=== PATIENT | female | born 1975 | race Caucasian/White ===

== ENCOUNTER 2016-05-07 09:20 | Day surgery (SDC) | payer MEDICAID, OTHER ==
[~2016-05-07 09:20] MED LIST: Lactated Ringers 1,000 ML IV SCH; Lidocaine 1%/Sod Bicarbonate in NS 8.4% 1 ML Syringe IV PRN; Sodium Chloride 0.9% 10 ML Syringe FLUSH PRN
--- NOTE | 2016-05-07 10:06 | PCM.PREANE ---
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 (and tingling feet ) Respiratory: Reports: cough Cardiovascular: Reports: blood pressure problem GI: Reports: no symptoms Other: Reports: none - PHYSICAL ASSESSMENT O2 Sat by Pulse Oximetry: 98 RR: 16 Vital Signs: Last Vital Signs Temp 36.8 C 05/07/16 09:25 Pulse 101 H 05/07/16 09:25 Resp 16 05/07/16 09:25 BP 152/93 H 05/07/16 09:25 Pulse Ox 98 05/07/16 09:25 Height: 1.63 m Weight: 87.543 kg NPO Status Date: 05/07/16 NPO Status Time: 23:00 ASA Class: 2 Mental Status: alert & oriented x3 Airway Class: Mallampati = 3 Dentition: Reports: missing tooth/teeth (missing multiple teeth upper, many chipped/ broken left upper side, right side missing incisor tooth ) Thyro-Mental Finger Breadths: 3 Mouth Opening Finger Breadths: 3 ROM/Head Extension: limited/partial Respiratory Status: lungs clear to auscultation bilaterally, cough, wheezing ( preop albuterol inhaler administered ) Cardiovascular Status: regular rate & rhythm, normal S1, S2, no murmur, blood pressure WNL - LAB Values: Laboratory Last Values WBC 11.63 K/mm3 (3.98-10.04) H 05/07/16 09:40 RBC 3.87 M/mm3 (3.98-5.22) L 05/07/16 09:40 Hgb 13.5 gm/L (11.2-15.7) 05/07/16 09:40 Hct 39.8 % (34.1-44.9) 05/07/16 09:40 MCV 102.8 fl (79.4-94.8) H 05/07/16 09:40 MCH 34.9 pg (25.6-32.2) H 05/07/16 09:40 MCHC 33.9 g/dl (32.2-35.5) 05/07/16 09:40 RDW Std Deviation 46.3 fL (36.4-46.3) 05/07/16 09:40 Plt Count 235 K/mm3 (182-369) 05/07/16 09:40 MPV 11.8 fl (9.4-12.3) 05/07/16 09:40 Neut % (Auto) 52.5 % (34.0-71.1) 05/07/16 09:40 Lymph % (Auto) 35.6 % (19.3-51.7) 05/07/16 09:40 [place] % (Auto) 7.6 % (4.7-12.5) 05/07/16 09:40 Eos % (Auto) 3.1 (0.7-5.8) 05/07/16 09:40 Baso % (Auto) 0.4 % (0.1-1.2) 05/07/16 09:40 Neut # 6.11 K/mm3 (1.56-6.13) 05/07/16 09:40 Lymph # 4.14 K/mm3 (1.18-3.74) H 05/07/16 09:40 [place] # 0.88 K/mm3 (0.24-0.36) H 05/07/16 09:40 Eos # 0.36 K/mm3 (0.04-0.36) 05/07/16 09:40 Baso # 0.05 K/mm3 (0.01-0.08) 05/07/16 09:40 - ALLERGIES Allergies/Adverse Reactions: Allergies Allergy/AdvReac Type Severity Reaction Status Date / Time lorazepam Allergy Hives Verified 05/06/16 16:19 Sulfa (Sulfonamide Allergy Cannot Verified 05/06/16 16:19 Antibiotics) Remember - BLOOD Blood Available: Yes Product(s) Available: PRBC - ANESTHESIA PLAN Preop Beta Opal: No Anesthesia Type Planned: general anesthesia - ACKNOWLEDGEMENTS Pt an appropriate candidate for the planned anesthesia: Yes Alternatives and risks of anesthesia discussed w pt/guardian: Yes Pt/Guardian understands and agree with anesthesia plan: Yes PreAnesthesia Questionnaire HEENT History: Reports: Impaired vision Cardiovascular History: Reports: Hypertension Respiratory History: Reports: Other (see below) (cough, wheezy, SOB if walking 2 flights of stairs) Gastrointestinal History: Reports: GERD Genitourinary History: Reports: None INSTRUCTION DEAN History: Reports: , Spontaneous , Other (see below) Other OB/BYN History: , CINII, pelvic pain, HSIL Musculoskeletal History: Reports: Arthritis, RA Neurological History: Reports: Migraines Psychiatric History: Reports: Anxiety, Depression Endocrine/Metabolic History: Reports: None Hematologic History: Reports: None Immunologic History: Reports: None Oncologic (Cancer) History: Reports: None Dermatologic History: Reports: None - Past Surgical History Head Surgeries/Procedures: Reports: None GI Surgical History: Reports: Appendectomy, Cholecystectomy Female Surgical History: Reports: section, LEEP, Tubal ligation - SUBSTANCE USE Smoking Status *Q: Current Every Day Smoker Recreational Drug Use History: No - HOME MEDS Home Medications: Home Meds ALPRAZolam [Alprazolam] 0.25 mg PO ASDIRECTED PRN 05/06/16 [History] Adalimumab [Humira] 1 injection SQ ASDIRECTED 05/06/16 [History] Albuterol [Ventolin HFA] 1 - 2 puff INH Q4H PRN 05/06/16 [History] Citalopram [Citalopram HBr] 40 mg PO DAILY 05/06/16 [History] Gabapentin [Neurontin] 300 mg PO TID 05/06/16 [History] Hydrochlorothiazide/Lisinopril [Lisinopril-HCTZ 20-25 MG] 1 tab PO DAILY [History] Methotrexate Sodium/PF [Methotrexate 50 mg/2 ml Vial] 1 injection SQ WEEKLY 08/17 [History] Omeprazole [Omeprazole] 20 mg PO DAILY 05/06/16 [History] Temazepam [Temazepam] 15 mg PO BEDTIME 05/06/16 [History] Topiramate 25 mg PO BID 05/06/16 [History] buPROPion HCl [Wellbutrin Xl] 300 mg PO DAILY 05/06/16 [History] tiZANidine [Zanaflex] 4 mg PO BEDTIME 05/06/16 [History] traMADol [Ultram] 50 mg PO Q6H PRN 05/06/16 [History] - CURRENT (IN HOUSE) MEDS Current Meds: Current Medications Lactated Ringer's (Ringers, Lactated) 1,000 mls @ 125 mls/hr IV ASDIRECTED KEISHA Stop: 05/07/16 23:00 Lidocaine/Sodium Bicarbonate (Buffered Lidocaine 1% In Ns 8.4%) 0.25 ml IV ONETIME PRN PRN Reason: Prior to IV Start Stop: 05/07/16 18:00 Sodium Chloride (Saline Flush) 10 ml FLUSH ASDIRECTED PRN PRN Reason: Keep Vein Open Stop: 05/07/16 18:00
[2016-05-07] MEDS ORDERED: diphenhydrAMINE 50 MG/ML SDV IVPUSH PRN ×2 (10:16→12:24)
[2016-05-07] MEDS ORDERED: Ondansetron 4 MG/2 ML SDV IVPUSH PRN ×2 (10:16→12:24)
[2016-05-07] MEDS ORDERED: Sodium Chloride 0.9% 50 ML SDV ONE (10:17)
[2016-05-07] MEDS ORDERED: Lidocaine 1% with EPINEPHrine 1:100,000 20 ML MDV ONE (10:17)
[2016-05-07] MEDS ORDERED: Albuterol 6.7 GM Inhaler INH ONE (10:39)
[2016-05-07] MEDS ORDERED: Succinylcholine/Normal Saline 100 MG/5 ML Syringe ONE ×2 (10:49→10:54)
[2016-05-07] MEDS ORDERED: Midazolam 1 MG/ML 2 ML SDV ONE (10:49)
[2016-05-07] MEDS ORDERED: Rocuronium 50 MG/5 ML Vial ONE ×2 (10:49→10:54)
[2016-05-07] MEDS ORDERED: Propofol 200 MG/20 ML SDV ONE ×2 (10:49→10:52)
[2016-05-07] MEDS ORDERED: fentaNYL 250 MCG/5 ML SDV ONE (10:50)
[2016-05-07] MEDS ORDERED: ceFAZolin 1 GM Vial ONE (10:52)
[2016-05-07] MEDS ORDERED: Lidocaine 1% 2 ML SDV ONE (10:57)
[2016-05-07] MEDS ORDERED: Meperidine PF 50 MG/ML Syringe IVPUSH PRN ×2 (11:20→12:24)
[2016-05-07] MEDS ORDERED: HYDROmorphone 0.5 MG/0.5 ML Syringe IVPUSH PRN ×2 (11:20→12:24)
[2016-05-07] MEDS ORDERED: HYDROmorphone 1 MG/ML Syringe ONE (11:35)
[2016-05-07] MEDS ORDERED: Ondansetron 4 MG/2 ML SDV ONE (11:38)
[2016-05-07] MEDS ORDERED: Dexamethasone 4 MG/ML SDV ONE (11:39)
[2016-05-07] MEDS ORDERED: Ketorolac 30 MG/ML SDV ONE (11:39)
[2016-05-07] MEDS ORDERED: Neostigmine Methylsulfate 1 MG/ML 5 ML Syringe ONE (11:57)
[2016-05-07] MEDS ORDERED: Ketamine 500 mg/10 ML MDV ONE (11:59)
--- NOTE | 2016-05-07 12:11 | PCM.OPNOTE ---
- General Post-Op/Procedure Note Date of Surgery/Procedure: 05/07/16 Operative Procedure(s): Total vaginal hysterectomy, bilateral salpingo- oophorectomy, and (neither ovary removed.) Pre Op Diagnosis: SHANON-2, female, pelvic pain, HSIL Pap Post-Op Diagnosis: Same Anesthesia Technique: General ET tube Primary Surgeon: Aftab Andrew Secondary Surgeon: Harjeet Valente Anesthesia Provider: Leonie Kan Fluid Replacement, Intraop: 1,000 Output, Urine Amount: 0 EBL in mLs: 50 Drain/Tube Comments:: None Complications: None Condition: Good Free Text/Narrative:: Patient was transported to operating room #1 and placed under general anesthesia with endotracheal intubation in the low dorsal lithotomy position. Sterile fashion. SCDs in place and functioning. Prior surgery. Ancef 2 g prior surgery. Timeout performed, and firming. Name, date of , and procedure as total vaginal hysterectomy, bilateral salpingectomy, possible removal of one or both ovaries, possible total abdominal hysterectomy, with bilateral salpingectomy, possible removal of one or both ovaries.). Total vaginal hysterectomy, bilateral salpingectomy performed without removal of either ovary . The examination under anesthesia revealed anterior uterus. No adnexal masses. The cervix was injected with 2 mL of 0.5% lidocaine with epinephrine and circumferentially using open 4 x 4, incising, the anesthetic into the tissues. A long knife was then used to circumscribe. The cervix pushing the anterior cul-de-sac and posterior cul-de-sac cephalad. Posterior colpotomy was performed, and proceeding in a pedicle fashion. Crossclamping, with LigaSure, activating, and, incising, the uterosacral ligaments and cardinal ligaments were crossclamped, LigaSure activated, and incised, the anterior colpotomy was performed without difficulty and proceeding in a pedicle fashion cephalad. Crossclamping, activating LigaSure, and incising, until the triple pedicles were approximated. The uterine fundus was brought through the posterior portion of the incision and crossclamping the triple pedicles bilaterally. The uterus. Cervix removed. The triple pedicles were suture ligated with 0 Monocryl and the left fallopian tube was grasped, and crossclamping the mesosalpinx, with the LigaSure, and removing the left fallopian tube sent. She carried out on the right side. Both ovaries appeared normal. Neither ovary was removed. Sponge, needle, pack, and splint sharp count correct, x2 in the pursestring suture was placed with 0 Monocryl to incorporate. The pedicles extraperitoneally having had anterior, posterior cuff , approximate of 0 Monocryl running, locking suture. Hemostasis was normal. No blood transfusions, required. Patient transported post anesthesia care unit in satisfactory condition. Talked with her and all questions answered is voice satisfaction
[2016-05-07] MEDS ORDERED: fentaNYL 100 MCG/2 ML SDV IVPUSH PRN (12:24)
[2016-05-07] MEDS: fentaNYL 100 MCG/2 ML SDV IVPUSH PRN ×3 (12:25→13:05)
--- NOTE | 2016-05-07 12:37 | PCM.POSTAN ---
POST ANESTHESIA ASSESSMENT - MENTAL STATUS Mental Status: alert - VITAL SIGNS Pulse Rate: 117 SaO2: 96 Resp Rate: 12 Blood Pressure: 152/76 Temperature: 98.5 C - RESPIRATORY Respiratory Status: respiratory rate WNL, airway patent, O2 saturation stable - CARDIOVASCULAR CV Status: pulse rate WNL, blood pressure stable - GASTROINTESTINAL GI Status: no symptoms - PAIN Pain Score: 0 (pt resting comfortably ) - POST OP HYDRATION Hydration Status: adequate & stable
--- NOTE | 2016-05-07 13:44 | PCM48HPAN ---
Post Anesthesia Note - EVALUATION WITHIN 48HRS OF ANESTHETIC Vital Signs in Normal Range: Yes Patient Participated in Evaluation: Yes Respiratory Function Stable: Yes Airway Patent: Yes Cardiovascular Function Stable: Yes Hydration Status Stable: Yes Pain Control Satisfactory: Yes (being treated with oral meds by room RN ) Nausea and Vomiting Control Satisfactory: Yes Mental Status Recovered: Yes
[2016-05-07] MEDS ORDERED: Acetaminophen/oxyCODONE 325-5 MG Tab PO ONE (14:50)
[2016-05-07 16:02] VITALS: BP 142/86
== END 2016-05-07 15:50 | disposition home or self-care (01) ==
LOC: JD.SDS 09:20
PROVIDERS: ATTEND Obstetrics & Gynecology
PROC: 0UT97ZZ Resection of Uterus, Via Natural or Artificial Opening (ICD-10-PCS; principal; 2016-05-07)
PROC: 0UTC7ZZ Resection of Cervix, Via Natural or Artificial Opening (ICD-10-PCS; 2016-05-07)
PROC: 0UT77ZZ Resection of Bilateral Fallopian Tubes, Via Natural or Artificial Opening (ICD-10-PCS; 2016-05-07)
DX: N72 Inflammatory disease of cervix uteri (principal); N80.0 Endometriosis of uterus; F41.9 Anxiety disorder, unspecified; M19.90 Unspecified osteoarthritis, unspecified site; F32.9 Major depressive disorder, single episode, unspecified; I10 Essential (primary) hypertension; M06.9 Rheumatoid arthritis, unspecified; Z88.2 Allergy status to sulfonamides; Z88.8 Allergy status to other drugs, medicaments and biological substances; Z79.899 Other long term (current) drug therapy; F17.200 Nicotine dependence, unspecified, uncomplicated
CPT/HCPCS: 36415; 58262; 84703; 85025; 86850; 86900; 86901; 88307; A9270; J0330; J0690; J1100; J1170; J1885; J2250; J2405; J2710; J3010; J7120; 00944; J2704

== ENCOUNTER 2019-08-11 13:09 | Emergency (ER) | payer MEDICAID, OTHER ==
[2019-08-11 13:50] VITALS: BP 179/90; PULSE 87
[2019-08-11] MEDS ORDERED: Sodium Chloride 0.9% 10 ML Syringe FLUSH PRN (13:59)
--- NOTE | 2019-08-11 14:03 | EDM.PDOC ---
ED HPI GENERAL MEDICAL PROBLEM - General Chief Complaint: Chest Pain Stated Complaint: CHEST PAIN/SOB X 1 WEEK Time Seen by Provider: 08/11/19 13:48 Source of Information: Reports: Patient History Limitations: Reports: No Limitations - History of Present Illness INITIAL COMMENTS - FREE TEXT/NARRATIVE: 44-year-old female attends the ED complaining of gradually worsening dyspnea over the last week. She has an associated upper respiratory tract infection or allergies with postnasal drip. She is aware of decreased hearing in her left ear and intermittent problems with vertigo as well. She wakes up every morning quite nauseated and cannot eat for about 2 or 3 hours. She does have a nonproductive cough. She states pain is primarily felt in her right anterior chest and seems to radiate into the right shoulder and down her arm. This is been present for the last 2-1/2 days. Pain seems to radiate through to her right back infrascapular area as well. She has not been on any vacations or long trips to be worrisome for DVT. No past history of DVT. She is a smoker three quarters of a pack per day. Nuys any hemoptysis. No true pleuritic chest pain. No palpitations Onset: Gradual Onset Date: 08/04/19 (Worsening dyspnea over the last week.) Duration: Day(s):, Constant (Right anterior chest pain is constant and worsens with deep breathing or coughing), Getting Worse Location: Reports: Chest (As of breath and right sided chest pain rating towards the right shoulder.), Radiates to (And also radiates from the right chest to her infrascapular area on the right side.) Quality: Reports: Other (Aware of postnasal drip.) Severity: Moderate Improves with: Reports: None Worsens with: Reports: Other (Certain movements make the right chest pain hurt as well as she can make it hurt by touching it.) Context: Denies: Activity, Exercise, Lifting, Sick Contact, Trauma, Other Associated Symptoms: Reports: Chest Pain (Nonproductive cough right chest wall pain primarily), Cough, Headaches, Loss of Appetite, Malaise, Nausea/Vomiting ( As he without vomiting), Shortness of Breath, Weakness. 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 Was for headache and chest pain relief. Patient does have chronic rheumatoid arthritis) Chest Pain Score (Numeric/FACES): 5 - Related Data Allergies Allergy/AdvReac Type Severity Reaction Status Date / Time lorazepam Allergy Hives Verified 08/11/19 13:50 Sulfa (Sulfonamide Allergy Cannot Verified 08/11/19 13:50 Antibiotics) Remember Home Meds: Home Meds ALPRAZolam [Alprazolam] 0.25 mg PO ASDIRECTED PRN 05/06/16 [History] Adalimumab [Humira] 1 injection SQ ASDIRECTED 05/06/16 [History] Albuterol [Ventolin HFA] 1 - 2 puff INH Q4H PRN 05/06/16 [History] Gabapentin [Neurontin] 300 mg PO TID 05/06/16 [History] Hydrochlorothiazide/Lisinopril [Lisinopril-HCTZ 20-25 MG] 1 tab PO DAILY [History] Methotrexate Sodium/PF [Methotrexate 50 mg/2 ml Vial] 1 injection SQ WEEKLY 08/17 [History] Omeprazole 20 mg PO DAILY 05/06/16 [History] Temazepam 15 mg PO BEDTIME 05/06/16 [History] Topiramate 25 mg PO BID 05/06/16 [History] buPROPion HCL [Wellbutrin Xl] 300 mg PO DAILY 05/06/16 [History] tiZANidine [Zanaflex] 4 mg PO BEDTIME 05/06/16 [History] traMADol [Ultram] 50 mg PO Q6H PRN 05/06/16 [History] Ibuprofen [Motrin] 200 - 600 mg PO Q6H #50 tablet 05/07/16 [Rx] Ondansetron [Zofran ODT] 8 mg PO Q5H #20 tab.dis 05/07/16 [Rx] oxyCODONE HCl/Acetaminophen [Percocet 5-325 mg Tablet] 1 each PO Q6H #30 tablet 05/07/16 [Rx] Cefdinir [Omnicef] 300 mg PO BID #16 cap 08/11/19 [Rx] Magnesium Chloride [Slow-Mag] 71.5 mg PO BID #60 tablet. 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 , Other (See Below) Other CRAWLER CRANE OPERATOR History: , CINII, pelvic pain, HSIL Musculoskeletal History: Reports: Arthritis, RA (Is on Humira and methotrexate.) Neurological History: Reports: Migraines Psychiatric History: Reports: Anxiety, Depression Endocrine/Metabolic History: Reports: None Hematologic History: Reports: None Immunologic History: Reports: None Oncologic (Cancer) History: Reports: None Dermatologic History: Reports: None - Past Surgical History Head Surgeries/Procedures: Reports: None GI Surgical History: Reports: Appendectomy, Cholecystectomy Female Surgical History: Reports: Section, LEEP, Tubal Ligation Social & Family History - Tobacco Use Smoking Status *Q: Current Every Day Smoker Years of Tobacco use: 23 Packs/Tins Daily: 1 - Living Situation & Occupation Living situation: Reports: Occupation: Unemployed ED ROS GENERAL - Review of Systems Review Of Systems: See Below Constitutional: Reports: Malaise, Fatigue, Decreased Appetite. Denies: Fever, Chills HEENT: Reports: Hearing Loss, Rhinitis (Postnasal drip nasal congestion), Sinus Problem. Denies: Ear Discharge Respiratory: Reports: Shortness of Breath, Wheezing, Cough. Denies: Pleuritic Chest Pain (Occasional wheezing), Sputum, Hemoptysis (Productive) Cardiovascular: Reports: Chest Pain (Take a appreciable on the right side seems to radiating towards the right arm and into her infrascapular on the right side. ), Dyspnea on Exertion. Denies: Blood Pressure Problem, Claudication, Edema, Lightheadedness, Orthopnea Endocrine: Reports: Fatigue GI/Abdominal: Reports: Nausea (Remittent nausea particularly in the mornings when she gets up she cannot eat right away) : Reports: No Symptoms Musculoskeletal: Reports: Neck Pain, Back Pain Skin: Reports: No Symptoms Neurological: Reports: Headache Psychiatric: Reports: No Symptoms Hematologic/Lymphatic: Reports: No Symptoms Immunologic: Reports: No Symptoms ED EXAM, GENERAL - Physical Exam Exam: See Below Exam Limited By: No Limitations General Appearance: Alert, WD/WN, No Apparent Distress, Other (Temperature is 36.4. Heart rate is 87 and sinus respiratory to 16 with O2 sats of 99% room air. BP is elevated at 179/90) Eye Exam: Bilateral Eye: Normal Inspection (No blepharal pallor or scleral icterus.), PERRL Ears: Other (And has a bulging left eardrum due to serous otitis media.) Nose: Clear Rhinorrhea (The tissue is erythematous and inflamed.), Other ( Marked nasal congestion with swelling of the superior middle turbinates bilaterally. On the left side it nearly occludes her nasal passage completely.) Throat/Mouth: Normal Inspection, Normal Lips, Normal Oropharynx, Other Head: Atraumatic (Is mildly dry), Normocephalic Neck: Normal Inspection, Supple, Non-Tender, Full Range of Motion, Limited Range of Motion (He does have pain at the extremes of range of motion but can reach full range of motion.). No: Carotid Bruit, Lymphadenopathy (L), Lymphadenopathy (R) Respiratory/Chest: No Respiratory Distress, Lungs Clear, Normal Breath Sounds, No Accessory Muscle Use, Other (Tenderness on palpation of the ribs. Particular the fourth rib on the left side midclavicular line. Ribs 2345 and 6 were very tender in the midclavicular line particular the fourth rib on the right side. Definite chest wall inflammation). No: Rales, Rhonchi, Wheezing Cardiovascular: Normal Peripheral Pulses, Regular Rate, Rhythm, No Edema, No Gallop, No Murmur, No Rub Peripheral Pulses: 2+: Posterior Tibial (L), Posterior Tibial (R), Dorsalis Pedis (L), Dorsalis Pedis (R), 3+: Carotid (L), Carotid (R) GI/Abdominal: Normal Bowel Sounds, Soft, Non-Tender, No Organomegaly, No Abnormal Bruit, No Mass, Pelvis Stable Back Exam: Normal Inspection, Decreased Range of Motion. No: CVA Tenderness (L) , CVA Tenderness (R) Extremities: Other (Patient has evidence of Arst rheumatoid arthritic changes particularly involving the MCP joints of both hands and feet feet. She also has evidence of inflammation in her wrists and knees.) Neurological: Alert, Oriented, CN II-XII Intact, Normal Cognition Psychiatric: Normal Affect, Normal Mood Skin Exam: Warm, Dry, Intact, Normal Color, No Rash Course - Vital Signs Last Recorded V/S: Last Vital Signs Temp 36.4 C 08/11/19 13:47 Pulse 87 08/11/19 13:47 Resp 16 08/11/19 13:47 BP 179/90 H 08/11/19 13:47 Pulse Ox 99 08/11/19 13:47 - Orders/Labs/Meds Orders: Active Orders 24 hr Category Date Time Status EKG Documentation Completion [RC] STAT Care 08/11/19 13:59 Active Peripheral IV Care [RC] . DIRECTED Care 08/11/19 13:59 Active Sodium Chloride 0.9% [Saline Flush] Med 08/11/19 13:59 Active 10 ml FLUSH ASDIRECTED PRN Peripheral IV Insertion Adult [OM.PC] Stat Oth 08/11/19 13:59 Ordered Medication Orders Sodium Chloride (Saline Flush) 10 ml FLUSH ASDIRECTED PRN PRN Reason: Keep Vein Open Labs: Laboratory Tests 08/11/19 08/11/19 08/11/19 Range/Units 14:24 14:24 14:24 WBC 13.07 H (3.98-10.04) K/mm3 RBC 4.62 (3.98-5.22) M/mm3 Hgb 15.6 D (11.2-15.7) gm/dl Hct 45.1 H (34.1-44.9) % MCV 97.6 H D (79.4-94.8) fl MCH 33.8 H (25.6-32.2) pg MCHC 34.6 (32.2-35.5) g/dl RDW Std Deviation 42.8 (36.4-46.3) fL Plt Count 245 (182-369) K/mm3 MPV 11.8 (9.4-12.3) fl Neut % (Auto) 60.5 (34.0-71.1) % Lymph % (Auto) 29.4 (19.3-51.7) % Garfield % (Auto) 6.7 (4.7-12.5) % Eos % (Auto) 2.7 (0.7-5.8) Baso % (Auto) 0.2 (0.1-1.2) % Neut # (Auto) 7.91 H (1.56-6.13) K/mm3 Lymph # (Auto) 3.84 H (1.18-3.74) K/mm3 Garfield # (Auto) 0.88 H (0.24-0.36) K/mm3 Eos # (Auto) 0.35 (0.04-0.36) K/mm3 Baso # (Auto) 0.02 (0.01-0.08) K/mm3 D-Dimer, Quantitative 0.27 (0.19-0.50) mg/L Sodium 139 (136-145) mEq/L Potassium 3.7 (3.5-5.1) mEq/L Chloride 102 (98-107) mEq/L Carbon Dioxide 25 (21-32) mEq/L Anion Gap 15.7 H (5-15) BUN 8 (7-18) mg/dL Creatinine 0.6 (0.55-1.02) mg/dL Est Cr Clr Drug Dosing 104.40 mL/min Estimated GFR (MDRD) > 60 (>60) mL/min BUN/Creatinine Ratio 13.3 L (14-18) Glucose 113 H (74-106) mg/dL Calcium 9.5 (8.5-10.1) mg/dL Magnesium 1.3 L (1.8-2.4) mg/dl Total Bilirubin 0.3 (0.2-1.0) mg/dL AST 41 H (15-37) U/L ALT 55 (14-59) U/L Alkaline Phosphatase 41 L (46-116) U/L CK-MB (CK-2) 0.7 (0-3.6) ng/ml Troponin I < 0.017 (0.00-0.056) ng/mL C-Reactive Protein 1.0 (<1.0) mg/dL NT-Pro-B Natriuret Pep (0-125) pg/mL Total Protein 8.1 (6.4-8.2) g/dl Albumin 4.0 (3.4-5.0) g/dl Globulin 4.1 gm/dL Albumin/Globulin Ratio 1.0 (1-2) 08/11/19 Range/Units 14:24 WBC (3.98-10.04) K/mm3 RBC (3.98-5.22) M/mm3 Hgb (11.2-15.7) gm/dl Hct (34.1-44.9) % MCV (79.4-94.8) fl MCH (25.6-32.2) pg MCHC (32.2-35.5) g/dl RDW Std Deviation (36.4-46.3) fL Plt Count (182-369) K/mm3 MPV (9.4-12.3) fl Neut % (Auto) (34.0-71.1) % Lymph % (Auto) (19.3-51.7) % Garfield % (Auto) (4.7-12.5) % Eos % (Auto) (0.7-5.8) Baso % (Auto) (0.1-1.2) % Neut # (Auto) (1.56-6.13) K/mm3 Lymph # (Auto) (1.18-3.74) K/mm3 Garfield # (Auto) (0.24-0.36) K/mm3 Eos # (Auto) (0.04-0.36) K/mm3 Baso # (Auto) (0.01-0.08) K/mm3 D-Dimer, Quantitative (0.19-0.50) mg/L Sodium (136-145) mEq/L Potassium (3.5-5.1) mEq/L Chloride (98-107) mEq/L Carbon Dioxide (21-32) mEq/L Anion Gap (5-15) BUN (7-18) mg/dL Creatinine (0.55-1.02) mg/dL Est Cr Clr Drug Dosing mL/min Estimated GFR (MDRD) (>60) mL/min BUN/Creatinine Ratio (14-18) Glucose (74-106) mg/dL Calcium (8.5-10.1) mg/dL Magnesium (1.8-2.4) mg/dl Total Bilirubin (0.2-1.0) mg/dL AST (15-37) U/L ALT (14-59) U/L Alkaline Phosphatase (46-116) U/L CK-MB (CK-2) (0-3.6) ng/ml Troponin I (0.00-0.056) ng/mL C-Reactive Protein (<1.0) mg/dL NT-Pro-B Natriuret Pep 30 (0-125) pg/mL Total Protein (6.4-8.2) g/dl Albumin (3.4-5.0) g/dl Globulin gm/dL Albumin/Globulin Ratio (1-2) Meds: Medications Generic Name Dose Route Start Last Admin Trade Name Lin PRN Reason Stop Dose Admin Sodium Chloride 10 ml 08/11/19 13:59 Saline Flush FLUSH ASDIRECTED PRN Keep Vein Open - Radiology Interpretation Free Text/Narrative:: 44-year-old female attends the ED with a history of gradually worsening dyspnea over the last week with the development of right-sided chest pain over the last 2 to 3 days. It is much worse today and radiating to her right arm particularly medially to her elbow and through to her back under her shoulder blade. She has an upper respiratory tract infection with sinusitis and postnasal drip. Exam also revealed a left serous otitis media marked inflammation of the nightmares particular superior medial turbinates bilaterally. Lungs were clear to auscultation percussion heart was sinus she has marked chest wall pain fourth rib midclavicular line on the left side ribs 2 -6 were very tender to touch on the right side midclavicular line. I suspect pain and is radiating along the costochondral nerve into the right upper extremity. Range of motion of her shoulder on the right side is normal. She to her knowledge is had no inflammation of her lungs from rheumatoid arthritis. Sats are good and so unlikely that she has a knee DVT. Examining for lower extremity show no evidence of any worrisome changes for DVT in her legs. Teen labs will be obtained as well as a chest x-ray and ECG. At this time she did not request any analgesia she got hydrocodone tablet about 2 hours before coming to the ED.. - Re-Assessments/Exams Free Text/Narrative Re-Assessment/Exam: 08/11/19 14:56 chest x-ray done portably is within normal limits. Cardiac silhouette is normal. Lungs are clear with no signs of infection. 08/11/19 14:57 White count is slightly elevated at 13.07. The auto differential shows 60.5% neutrophils. Hemoglobin is 15.6 with a hematocrit of 45.1. Platelet count is 245,000. Chemistry is pending 08/11/19 15:34 d-dimer is 0.27. Normal. Chemistry remains pending 08/11/19 15:42 Chemistry shows a sodium of 139 potassium 3.7. Chloride is 102 with a bicarb 25. Anion gap is 15.7. BUN is 8 with a creatinine of 0.6. Glucose 113. Calcium is 9.5. Magnesium is low at 1.3. Bilirubin is 0.3 AST minimally elevated at 41. ALT is 55. CK-MB fraction is 0.7 troponin I is less than 0.017. C-reactive protein 1.0. BNP is 30. Total protein is 8.1 with an albumin fraction of 4.0. 08/11/19 15:[address] her on Omnicef 300 mg twice daily for the next 8 days sinus congestion and help with left OM. I am going to place her on prednisone 20 mg twice daily for 6 days and once in the morning for another 6 days for chest wall pain as well as sinus infection. Magnesium supplement will be Slow-Mag 1 tablet twice daily for the next month. Departure - Departure Time of Disposition: 15:54 Disposition: Home, Self-Care 01 Reason for Transfer *Q: Other Condition: Fair Clinical Impression: Hypomagnesemia, Non-cardiac chest pain, Chest wall pain Sinusitis Qualifiers: Sinusitis location: ethmoidal Chronicity: acute Recurrence: recurrent Qualified Code(s): J01.21 - Acute recurrent ethmoidal sinusitis Acute serous otitis media of left ear Qualifiers: Recurrence: non-recurrent Qualified Code(s): H65.02 - Acute serous otitis media , left ear Prescriptions: Cefdinir [Omnicef] 300 mg PO BID #16 cap Magnesium Chloride [Slow-Mag] 71.5 mg PO BID #60 tablet. predniSONE [Prednisone] 20 mg PO ASDIRECTED #18 tablet Instructions: Sinusitis, Adult, [id number], Hypomagnesemia, Chest Wall Pain Referrals: Jenna Garner NP [Primary Care Provider] - Forms: ED Department Discharge Additional Instructions: Evaluation in the emergency room today in regards to chest pain associate with feeling of shortness of breath. Chest pain is identified in the right anterior chest wall particular ribs 2-6 and radiates towards the back under the shoulder blade. Also radiates down the right shoulder and arm. Identified upper respiratory tract infection with sinus congestion and postnasal drip likely contributing to cough and sense of shortness of breath since you cannot breathe through your left nares at all. We get about 30% of her airflow through her nose. You have fluid buildup behind your left eardrum pushing the eardrum outwards but no active infection at this time. Chest x-ray proved to be normal. ECG to proved to be normal. Lab work showed no evidence of a blood clot in the lung and no sign of any heart related illness. Just treatment to be Motrin 600 mg twice daily as needed to reduce inflammation and pain in the chest wall. Prednisone 20 mg twice daily for 6 days with breakfast and supper and then once in the morning only for another 6 days to reduce inflammation in the chest wall and reduction of pain. Antibiotic is to be Omnicef 300 mg twice daily for the next 8 days to clear up sinus infection. The other finding that you in the lab work was that you were low on magnesium at 1.3 with normal being 2. We call this hypomagnesemia. You should take a magnesium supplement called Slow-Mag 1 tablet twice daily for the next month. You are at the doctor the magnesium level should be checked again. Follow-up with personal care physician if any further problems occur Sepsis Event Note (ED) - Evaluation Sepsis Screening Result: No Definite Risk - Focused Exam Vital Signs: Vital Signs Temp Pulse Resp BP Pulse Ox 08/11/19 13:47 36.4 C 87 16 179/90 H 99 - My Orders Last 24 Hours: My Active Orders 08/11/19 13:59 EKG Documentation Completion [RC] STAT Peripheral IV Care [RC] . DIRECTED Sodium Chloride 0.9% [Saline Flush] 10 ml FLUSH ASDIRECTED PRN Peripheral IV Insertion Adult [OM.PC] Stat - Assessment/Plan Last 24 Hours: My Active Orders 08/11/19 13:59 EKG Documentation Completion [RC] STAT Peripheral IV Care [RC] . DIRECTED Sodium Chloride 0.9% [Saline Flush] 10 ml FLUSH ASDIRECTED PRN Peripheral IV Insertion Adult [OM.PC] Stat
--- NOTE | 2019-08-11 14:30 | CR ---
Chest: Portable view of the chest was obtained. Comparison: Prior chest x-ray of 07/09/09. Heart size and mediastinum are within normal limits for portable technique. Lungs are clear with no acute parenchymal change. Bony structures are unremarkable. Impression: 1. Nothing acute is seen on portable chest x-ray. Diagnostic code #1 This report was dictated in MDT
== END 2019-08-11 16:19 | disposition home or self-care (01) ==
LOC: JD.ED 13:09
DX: H65.02 Acute serous otitis media, left ear (principal); J01.21 Acute recurrent ethmoidal sinusitis; E83.42 Hypomagnesemia; R07.89 Other chest pain; Z79.899 Other long term (current) drug therapy; Z88.8 Allergy status to other drugs, medicaments and biological substances; Z88.2 Allergy status to sulfonamides; K21.9 Gastro-esophageal reflux disease without esophagitis; M06.9 Rheumatoid arthritis, unspecified; F41.9 Anxiety disorder, unspecified; F32.9 Major depressive disorder, single episode, unspecified; F17.210 Nicotine dependence, cigarettes, uncomplicated
CPT/HCPCS: 36415; 71045; 71045-26; 80053; 82553; 83735; 83880; 84484; 85025; 85379; 86140; 93005; 93010; 99284; 99285-25